=== PATIENT | male | born 1950 | race Two or more races ===

== ENCOUNTER 2020-01-13 08:34 | Inpatient (IN) | payer MEDICARE, OTHER ==
[~2020-01-13] VITALS: Ht 175.3 cm; Wt 91.8 kg
[2020-01-13] MEDS ORDERED: ALBUTEROL SULF 2.5 MG/0.5ML(0.5%) NEB SOLN NEB ONE (09:00)
[2020-01-13] MEDS ORDERED: IPRATROPIUM BROM 0.5 MG/2.5ML INH SOL NEB ONE (09:00)
[2020-01-13] MEDS ORDERED: MAGNESIUM SULFATE 1GM/100ML 100 ML IV ONE (09:00)
[2020-01-13] MEDS ORDERED: methylPREDNISolone SOD SUCC 125 MG/2 ML VL IV ONE (09:00)
[2020-01-13 09:37] LABS: Basophils # (auto) 0.1 10 ^3/uL (0-0.2); Hemoglobin 13.3 g/dL (13.5-17.5); Monocytes # (auto) 0.4 10 ^3/uL (0-1.3); Neutrophils # (auto) 9.6 10 ^3/uL (1.6-8.6)
[2020-01-13 09:40] LABS: Basophils % (auto) 0.6 % (0.0-2.0); Eosinophils # (auto) 0.3 10 ^3/uL (0-0.8); Eosinophils % (auto) 2.3 % (0.0-7.0); Hematocrit 42.3 % (41.0-53.0); Lymphocytes # (auto) 1.2 10 ^3/uL (0.4-5.4); Lymphocytes % (auto) 10.4 % (10.0-50.0); Mean Corpuscular Hemoglobin 28.9 pg (28.0-32.0); Mean Corpuscular Hgb Conc. 31.4 g/dL (32.0-36.0); Monocytes % (auto) 3.6 % (0.0-12.0); Neutrophils % (auto) 83.1 % (37.0-80.0); Nucleated Red Blood Cells % 0.1 %; Platelet Count (auto) 380 10^3/uL (140-450); Red Blood Cells 4.59 10^6/uL (4.5-5.90); Red Cell Distribution Width 14.4 % (11.8-14.3); White Blood Cell 11.5 10^3/uL (4.4-10.8)
[2020-01-13 09:54] LABS: INR 0.97 (0.9-1.15); Partial Thromboplastin Time 23.2 sec (23.0-31.2)
[2020-01-13 09:59] LABS: Albumin 4.1 g/dL (3.4-5.0); Calcium 9.1 mg/dL (8.5-10.1); Potassium 3.8 mmol/L (3.5-5.1)
[2020-01-13 10:08] LABS: BUN/Creatinine Ratio 8.6; Bilirubin, Total 0.4 mg/dL (0.2-1.0); Total Protein 8.1 g/dL (6.4-8.2)
[2020-01-13 12:17] VITALS: BP 119/56
[2020-01-13] MEDS ORDERED: HYDROcodone-ACET 5/325MG TAB PO ONE (12:30)
[2020-01-13] MEDS ORDERED: MORPHINE SULF INJ 2 MG/ML SYRINGE 1ML IV PRN (14:00)
[2020-01-13] MEDS ORDERED: NITROGLYCERIN 0.4 MG SL TAB SL PRN (14:00)
[2020-01-13] MEDS ORDERED: ACETAMINOPHEN 500 MG TAB PO PRN (14:00)
[2020-01-13] MEDS: AZITHROMYCIN 500MG/ 250ML 250 ML IV SCH (15:28)
[2020-01-13 15:35] VITALS: BP 151/78
--- NOTE | 2020-01-13 15:35 | NUR ---
Telemetry admit from ER KAREY FERNANDES admitted to Telemetry unit after SBAR received. Patient oriented to JAIME ANGEL, RN primary RN, unit, room, bed, and unit policies regarding patient care and visiting hours. Patient now on continuous telemetry monitoring, tele box # 15. Patient placed on bedside oxygen, weighed by bed scale and encouraged to call if they need something. All questions and concerns addressed, patient verbalized understanding. Patient VS: 98.2, 63, 18, 96%, 151/78. Will continue to monitor
--- NOTE | 2020-01-13 16:30 | NUR ---
MED REC Med rec complete by pharmacy over phone with patient.
[2020-01-13] MEDS ORDERED: HYDR-4833 PO (16:39)
[2020-01-13] MEDS ORDERED: FLUT1INH6 IN (16:39)
[2020-01-13] MEDS ORDERED: PANT40TA2 PO (16:39)
[2020-01-13] MEDS ORDERED: ATOR20TA50 PO (16:39)
[2020-01-13] MEDS ORDERED: FERR325T18 PO (16:39)
[2020-01-13] MEDS ORDERED: LEVA0.6320 NEB (16:39)
[2020-01-13] MEDS ORDERED: ROFL1TAB2 PO (16:39)
[2020-01-13] MEDS ORDERED: COROSUS EACH EAR (16:39)
[2020-01-13] MEDS ORDERED: SUCR1TAB PO (16:39)
[2020-01-13] MEDS ORDERED: TIOT17SP IN (16:39)
[2020-01-13] MEDS ORDERED: BUDE0.253 NEB (16:39)
[2020-01-13] MEDS ORDERED: ALBUAER3 IN (16:39)
[2020-01-13] MEDS ORDERED: AMLO5TAB15 PO (16:39)
[2020-01-13] MEDS ORDERED: PRAM0.5T2 PO (16:39)
[2020-01-13] MEDS ORDERED: TELM80TA PO (16:39)
[2020-01-13] MEDS ORDERED: DULO60CA PO (16:39)
[2020-01-13] MEDS ORDERED: GABA300C10 PO (16:39)
[2020-01-13 17:00] VITALS: BP 151/78
--- NOTE | 2020-01-13 17:55 | NUR ---
INHOUSE COVID NEGATIVE Informed community engagement coordinator that patient is covid negative.
[2020-01-13] MEDS: HYDROcodone-ACET 5/325MG TAB PO PRN (18:40)
--- NOTE | 2020-01-13 19:19 | NUR ---
Respiratory note: SPOKE TO RN IN [facility], PT WILL BE MOVED OUT OF COVID UNIT. WILL HOLD MED NEB TX AT THIS TIME, WILL ADMINISTER WHEN PT ARRIVES TO NEWLY ASSIGNED BED.
--- NOTE | 2020-01-13 19:20 | NUR ---
Patient being transferred to room 212 with ZORAN Amos. Report given and patient moved with all personal belongings.
--- NOTE | 2020-01-13 19:30 | NUR ---
Opening Shift Note Assumed care of patient, awake and alert. No S/S of distress/SOB or pain. Instructed on POC and to call for assist PRN. Bed in lowest locked position, call light within reach, side rails up x2, fall precautions in place. Will continue to monitor for changes Q1hr and PRN.
[2020-01-13] MEDS: MORPHINE SULF INJ 2 MG/ML SYRINGE 1ML IV PRN (21:13)
[2020-01-13] MEDS: methylPREDNISolone SOD SUCC 40 MG/ML VL IV SCH (21:14)
[2020-01-13] MEDS: BUDESONIDE (INHALATION) 0.5 MG/2 ML NEB NEB SCH (22:04)
[2020-01-13] MEDS: IPRATROPIUM BROM 0.5 MG/2.5ML INH SOL NEB SCH (22:04)
[2020-01-13] MEDS: ALBUTEROL SULF 2.5 MG/0.5ML(0.5%) NEB SOLN NEB SCH (22:04)
[2020-01-13 22:13] VITALS: BP 136/70
[2020-01-14] MEDS: MORPHINE SULF INJ 2 MG/ML SYRINGE 1ML IV PRN ×4 (01:10→22:53)
[2020-01-14 05:00] VITALS: BP 124/63
[2020-01-14 06:13] LABS: Urine Bacteria FEW /hpf (None Seen); Urine Blood Negative /uL (Negative); Urine Specific Gravity 1.018 (1.001-1.035); Urine WBC 2 /hpf (0 - 3)
[2020-01-14] MEDS: ALBUTEROL SULF 2.5 MG/0.5ML(0.5%) NEB SOLN NEB SCH ×3 (07:09→18:29)
[2020-01-14] MEDS: IPRATROPIUM BROM 0.5 MG/2.5ML INH SOL NEB SCH ×3 (07:09→18:30)
[2020-01-14 07:11] LABS: Basophils # (auto) 0 10 ^3/uL (0-0.2); Basophils % (auto) 0.1 % (0.0-2.0); Eosinophils # (auto) 0 10 ^3/uL (0-0.8); Hemoglobin 12.7 g/dL (13.5-17.5); Lymphocytes # (auto) 0.5 10 ^3/uL (0.4-5.4); Lymphocytes % (auto) 2.3 % (10.0-50.0); Mean Corpuscular Hemoglobin 28.4 pg (28.0-32.0); Mean Corpuscular Hgb Conc. 31.8 g/dL (32.0-36.0); Mean Corpuscular Volume 89.3 fL (80.0-100.0); Monocytes # (auto) 0.5 10 ^3/uL (0-1.3); Monocytes % (auto) 2.2 % (0.0-12.0); Neutrophils # (auto) 21.1 10 ^3/uL (1.6-8.6); Neutrophils % (auto) 95.4 % (37.0-80.0); Platelet Count (auto) 396 10^3/uL (140-450); Red Blood Cells 4.48 10^6/uL (4.5-5.90); Red Cell Distribution Width 14.4 % (11.8-14.3); White Blood Cell 22.1 10^3/uL (4.4-10.8)
[2020-01-14] MEDS: BUDESONIDE (INHALATION) 0.5 MG/2 ML NEB NEB SCH ×2 (07:11→18:30)
[2020-01-14 07:26] LABS: Calcium 9.3 mg/dL (8.5-10.1); Potassium 4.5 mmol/L (3.5-5.1)
[2020-01-14 07:28] LABS: BUN/Creatinine Ratio 14.7
--- NOTE | 2020-01-14 07:30 | NUR ---
Opening Shift Note Assumed care of patient, awake and alert. No S/S of distress,SOB with activity, reports moderate back pain. Instructed on POC and to call for assist PRN, will continue to monitor for changes Q1hr and PRN.
[2020-01-14] MEDS: HYDROcodone-ACET 5/325MG TAB PO PRN (08:10)
[2020-01-14 09:00] VITALS: BP 124/63
[2020-01-14] MEDS: methylPREDNISolone SOD SUCC 40 MG/ML VL IV SCH (09:27)
[2020-01-14] MEDS: AZITHROMYCIN 500MG/ 250ML 250 ML IV SCH (09:27)
[2020-01-14 13:00] VITALS: BP 147/88
[2020-01-14] MEDS: HYDROcodone-ACET 10/325MG TAB PO PRN ×2 (13:39→19:40)
[2020-01-14 16:40] VITALS: BP 152/76
[2020-01-14 22:00] VITALS: BP 151/66
[2020-01-15] MEDS: HYDROcodone-ACET 10/325MG TAB PO PRN ×2 (03:43→09:52)
[2020-01-15 05:00] VITALS: BP 133/62
[2020-01-15] MEDS: IPRATROPIUM BROM 0.5 MG/2.5ML INH SOL NEB SCH (06:22)
[2020-01-15] MEDS: ALBUTEROL SULF 2.5 MG/0.5ML(0.5%) NEB SOLN NEB SCH (06:23)
[2020-01-15] MEDS: BUDESONIDE (INHALATION) 0.5 MG/2 ML NEB NEB SCH (06:23)
[2020-01-15] MEDS: MORPHINE SULF INJ 2 MG/ML SYRINGE 1ML IV PRN (06:44)
--- NOTE | 2020-01-15 07:30 | NUR ---
Opening Shift Note Assuming care of patient at this time. Patient is awake and alert. Patient denies pain. Patient shows no signs or symptoms of shortness of breath. Bed is locked and lowered with side rails up x2. Instructed patient on the plan of care for today and to call for assistance as needed. Call light within reach. Will continue to round hourly and as needed.
[2020-01-15 09:00] VITALS: BP 138/82
[2020-01-15] MEDS: AZITHROMYCIN 500MG/ 250ML 250 ML IV SCH (09:58)
[2020-01-15] MEDS ORDERED: predniSONE 20 MG TAB PO SCH (10:00)
[2020-01-15 11:59] VITALS: BP 138/82
--- NOTE | 2020-01-15 13:00 | NUR ---
Discharge Discharge instructions given as ordered. Encourage to follow up with PMD as instructed. All questions and concerns addressed. Patient verbalized understanding. Medication reconciliation form completed and copy given to patient. IV removed with catheter intact, pressure dressing applied. Telemetry unit returned to ICU. Patient taken to vehicle via wheelchair with all personal belongings, accompanied by staff and family member. No distress noted at time of departure.
== END 2020-01-15 12:30 | disposition home or self-care (01) | DRG 871 ==
LOC: ER 08:34 → EDBD 08:34 → TELE 08:35 → TELE-EAST 16:11 → TELE-CENTR 19:30
PROVIDERS: ADMIT Nurse Practitioner Acute Care; ATTEND Family Medicine
PROC: 5A09357 Assistance with Respiratory Ventilation, Less than 24 Consecutive Hours, Continuous Positive Airway Pressure (ICD-10-PCS; principal; 2020-01-13)
DX: A41.9 Sepsis, unspecified organism (principal); J96.22 Acute and chronic respiratory failure with hypercapnia; J18.9 Pneumonia, unspecified organism; J96.21 Acute and chronic respiratory failure with hypoxia; J44.1 Chronic obstructive pulmonary disease with (acute) exacerbation; I10 Essential (primary) hypertension; E78.00 Pure hypercholesterolemia, unspecified; E78.5 Hyperlipidemia, unspecified; Z20.828 Contact with and (suspected) exposure to other viral communicable diseases; G89.4 Chronic pain syndrome; E66.9 Obesity, unspecified; M54.9 Dorsalgia, unspecified; Z88.0 Allergy status to penicillin; Z68.29 Body mass index [BMI] 29.0-29.9, adult; Z79.51 Long term (current) use of inhaled steroids; Z79.891 Long term (current) use of opiate analgesic; Z79.899 Other long term (current) drug therapy; Z80.1 Family history of malignant neoplasm of trachea, bronchus and lung; Z82.49 Family history of ischemic heart disease and other diseases of the circulatory system; Z82.3 Family history of stroke; Z87.891 Personal history of nicotine dependence; Z99.81 Dependence on supplemental oxygen
CPT/HCPCS: 36415; 36600; 71045; 71250; 80048; 80053; 81001; 82805; 83880; 84484; 85025; 85379; 85610; 85730; 87040; 87426; 87804; 93005; 93306; 93970; 94640; 94660; 99291; G0378